=== PATIENT | female | born 1990 ===

== ENCOUNTER 2016-07-22 15:22 | Observation (INO) | payer MEDICAID, OTHER ==
[2016-07-22 15:27] VITALS: BMI 23.6
[2016-07-22 15:33] VITALS: BP 111/74
[2016-07-22] MEDS ORDERED: Sodium Chloride 0.9% 1,000 ML IV ONE (16:17)
[2016-07-22] MEDS ORDERED: Sodium Chloride 0.9% 1,000 ML ONE (16:58)
[2016-07-22 16:59] LABS: BASO % 0.5 % (0.0-2.0); EOS # 0.1 K/uL (0.0-0.7); EOS % 1.6 % (0.0-4.0); HEMATOCRIT 39.9 % (34.0-47.0); LYMPH # 1.2 K/uL (1.0-4.3); LYMPH % 19.5 % (20.0-40.0); MEAN CELL VOLUME 89.8 fL (81.0-99.0); MEAN CORPUSCULAR HEMOGLOBIN 30.2 pg (27.0-31.0); MEAN CORPUSCULAR HGB CONC 33.6 g/dL (33.0-37.0); MONO # 0.6 K/uL (0.0-0.8); MONO % 9.4 % (0.0-10.0); NRBC % 0.1 % (0.0-2.0); RED CELL DISTRIBUTION WIDTH 12.7 % (11.5-14.5)
[2016-07-22 17:04] LABS: CHLORIDE 100 mmol/L (98-107); POTASSIUM 3.6 mmol/L (3.6-5.2); SODIUM 136 mmol/L (132-148)
[2016-07-22 17:06] LABS: ALB/GLOB RATIO 1.4 (1.0-2.1); ALKALINE PHOSPHATASE 54 U/L (38-126); AST/SGOT 49 U/L (14-36); BILIRUBIN,TOTAL 0.5 mg/dL (0.2-1.3); BLOOD UREA NITROGEN 9 mg/dL (7-17); CARBON DIOXIDE 23 mmol/L (22-30); GFR AFRICAN-AMERICAN > 60; TOTAL PROTEIN 7.6 g/dL (6.3-8.3)
[2016-07-22 17:07] LABS: ALT/SGPT 63 U/L (9-52); CALCIUM 8.9 mg/dl (8.6-10.4); GLUCOSE,RANDOM 78 mg/dL (65-105); RBC URINE 4 /hpf (0-3); URINE BACTERIA FEW (<OCC); URINE BILIRUBIN NEGATIVE (NEGATIVE); URINE BLOOD NEGATIVE (NEGATIVE); URINE COLOR Yellow (YELLOW); URINE GLUCOSE (UA) NORMAL (Normal); URINE KETONE 1+ mg/dL (NEGATIVE); URINE LEUKOCYTE ESTERASE TRACE Leu/uL (Negative); URINE PROTEIN NEGATIVE (NEGATIVE); URINE UROBILINOGEN NORMAL mg/dL (0.2-1.0); WBC URINE 12 /hpf (0-5)
--- NOTE | 2016-07-22 17:34 | C.PDOC ---
History Of Present Illness <NaybradyCrystalSravani C - Last Filed: 07/22/16 19:00> <Francine Nowak - Last Filed: 07/22/16 21:44> 26-year-old female, presents to the emergency department with complaints of nausea/vomiting. Patient states she had a questionable period in beginning of , but isn't sure if she is . Patient notes one week duration of nausea/vomiting with difficulty tolerating PO. Pt states she had similar symptoms last year, when she learned that she was , and miscarried. Denies any vaginal bleeding/discharge or symptoms. No other complaints at this time (Sravani Quintero) History Per: Patient History/Exam Limitations: no limitations Onset/Duration Of Symptoms: Days Current Symptoms Are (Timing): Still Present Severity: Moderate <NaybradySravani C - Last Filed: 07/22/16 19:00> <Francine Nowak - Last Filed: 07/22/16 21:44> Time Seen by Provider: 07/22/16 15:51 Chief Complaint (Nursing): Abdominal Pain Past Medical History Reviewed: Historical Data, Nursing Documentation, Vital Signs - Medical History PMH: Denies: Depression Family History: States: Unknown Family Hx - Social History Hx Tobacco Use: Yes (Quit 1 year ago) Hx Alcohol Use: Yes Hx Substance Use: No - Immunization History Hx Tetanus Toxoid Vaccination: No Hx Influenza Vaccination: No Hx Pneumococcal Vaccination: No <DanisrealCrystalSravani C - Last Filed: 07/22/16 19:00> Vital Signs: Last Vital Signs Temp 97.5 F L 07/22/16 15:27 Pulse 92 H 07/22/16 15:27 Resp 17 07/22/16 15:27 BP 111/74 07/22/16 15:27 Pulse Ox 100 07/22/16 19:02 - [facility] Procedures INJECT/INFUSE NEC (11/02/11) Review Of Systems Except As Marked, All Systems Reviewed And Found Negative. Constitutional: Negative for: Fever, Chills Cardiovascular: Negative for: Chest Pain Gastrointestinal: Positive for: Nausea, Vomiting, Constipation Genitourinary: Negative for: Vaginal Discharge, Vaginal Bleeding Musculoskeletal: Negative for: Back Pain Skin: Negative for: Rash Neurological: Negative for: Weakness, Numbness, Headache, Dizziness <Sravani Quintero - Last Filed: 07/22/16 19:00> Physical Exam - Physical Exam Appears: Non-toxic, No Acute Distress Skin: Normal Color, Warm, Dry, No Rash Head: Atraumatic, Normacephalic Eye(s): bilateral: Normal Inspection, PERRL, EOMI Nose: Normal Oral Mucosa: Dry Lips: Normal Appearing Throat: Normal Neck: Normal Cardiovascular: Rhythm Regular Respiratory: Normal Breath Sounds Gastrointestinal/Abdominal: Normal Exam Back: Normal Inspection Extremity: Normal ROM <Sravani Quintero - Last Filed: 07/22/16 19:00> ED Course And Treatment - Laboratory Results Result Diagrams: 07/22/16 16:49 07/22/16 16:49 O2 Sat by Pulse Oximetry: 100 <Sravani Quintero - Last Filed: 07/22/16 19:00> - Laboratory Results Result Diagrams: 07/22/16 16:49 07/22/16 16:49 O2 Sat by Pulse Oximetry: 100 Pulse Ox Interpretation: Normal Reevaluation Time: 21:43 Reassessment Condition: Improved <Francine Nowak - Last Filed: 07/22/16 21:44> ED OBSERVATION Date of observation admission: 07/22/16 Time of observation admission: 17:45 <Sravani Quintero - Last Filed: 07/22/16 19:00> Discharge: Yes <Francine Nowak - Last Filed: 07/22/16 21:44> - Observation admission statement Patient is being placed in observation because:: pelvic pain and questionable (Sravani Quintero) - Goals of Observation Goals of observation are:: Rule out acute abdomen. Initially urine hcg was negative for , but the serum hcg was (+). Will repeat lab work and ordered ultrasound (Sravani Quintero) - Progress Note Progress Note: 07/22/16 18:22 On re-exam, the patient reports that the nausea has improved but there is mild pelvic pain. 07/22/16 18:23 (Sravani Quintero) Disposition - Disposition Disposition Time: 19:01 <Sravani Quintero - Last Filed: 07/22/16 19:00> Counseled Patient/Family Regarding: Studies Performed, Diagnosis, Need For Followup, Rx Given - Disposition Disposition Time: 19:00 <Francine Nowak - Last Filed: 07/22/16 21:44> - Disposition Disposition: HOME/ ROUTINE Condition: FAIR - Clinical Impression Clinical Impression: - Scribe Statement The provider has reviewed the documentation as recorded by the Scribe <Sravani Quintero - Last Filed: 07/22/16 19:00> <Francine Nowak - Last Filed: 07/22/16 21:44> - Scribe Statement Katrhyn Adams All medical record entries made by the Scribe were at my direction and personally dictated by me. I have reviewed the chart and agree that the record accurately reflects my personal performance of the history, physical exam, medical decision making, and the department course for this patient. I have also personally directed, reviewed, and agree with the discharge instructions and disposition. (Sravani Quintero) Physician Patient Turnover Patient Signed Over To: Francine Nowak Handoff Comments: Pending ultrasound and disposition <Sravani Quintero - Last Filed: 07/22/16 19:00>
[2016-07-22 21:46] VITALS: PULSE 76; RESP 18; TEMP 97.6; O2SAT 99
--- NOTE | 2016-07-23 17:15 | US ---
OB ultrasound 07/22/2016 Transabdominal- transvaginal sonographic evaluation of the uterus performed. Findings: Uterus is anteverted measuring approximately 8.3 x 5.2 x 6.1 cm. Cervix is closed measuring 3.3 cm. Intrauterine gestational sac: Gestational sac: MSD 1.93 cm = 6 weeks 3 days Yolk sac: .39cm pole: 0.6 cm = 6 weeks 3 days Average ultrasound age = 6 weeks 3 days +/-0 weeks 3 days Heart motion: 122 BPM small Amount of free fluid present in the cul de sac Right ovary measures 5.1 x 2.5 x 4.7 cm and contains a cyst measuring approximately 2.87 cm in greatest dimension. Right ovary exhibits arterial flow Left ovary measures 3.1 x 2.1 x 3.7 cm and contains at least 2 cysts the largest measuring 1.8 and the 2nd measuring 1.6 cm in greatest dimension. Impression: Single living intrauterine gestation at approximately 6 weeks 3 days +/-0 weeks 3 days Bilateral ovarian cysts.
== END 2016-07-22 21:44 | disposition home or self-care (01) ==
LOC: C.ER 15:22 → C.9OBSV 18:19
PROVIDERS: ADMIT Emergency Medicine; ATTEND Emergency Medicine
DX: R11.2 Nausea with vomiting, unspecified (principal); R10.2 Pelvic and perineal pain; Z33.1 Pregnant state, incidental
CPT/HCPCS: 76805; 76817; 80053; 81001; 83690; 84702; 84703; 85025; 86850; 86900; 96361; 96374; 96375; 99284; G0378; J2405; J2765; J7040

== ENCOUNTER 2017-11-09 16:38 | Emergency (ER) | payer MEDICAID ==
[2017-11-09 16:43] VITALS: BMI 22.3
[2017-11-09 16:45] VITALS: TEMP 97.7
[2017-11-09 17:36] LABS: HCG,QUALITATIVE URINE NEGATIVE (NEGATIVE)
[2017-11-09 17:38] LABS: SQUAMOUS EPITHIAL 1 /hpf (0-5); URINE BILIRUBIN NEGATIVE (NEGATIVE); URINE CLARITY Clear (Clear); URINE COLOR Colorless (YELLOW); URINE GLUCOSE (UA) NORMAL (Normal); URINE LEUKOCYTE ESTERASE NEG Leu/uL (Negative); URINE PROTEIN NEGATIVE (NEGATIVE); URINE UROBILINOGEN NORMAL mg/dL (0.2-1.0)
[2017-11-09 17:50] LABS: URINE BLOOD TRACE (NEGATIVE)
--- NOTE | 2017-11-09 18:00 | C.PDOC ---
History Of Present Illness 27 y/o female presents to ED with complaints of dysuria for 2 days. Contrary to triage patient denies abdominal pain, nausea, vomiting, diarrhea, vaginal bleeding, vaginal discharge, fever, chills or any other complaints at this time. Time Seen by Provider: 11/09/17 17:20 Chief Complaint (Nursing): Abdominal Pain History Per: Patient History/Exam Limitations: no limitations Onset/Duration Of Symptoms: Days Current Symptoms Are (Timing): Still Present Associated Symptoms: Urinary Symptoms Past Medical History Reviewed: Historical Data, Nursing Documentation, Vital Signs Vital Signs: Last Vital Signs Temp 97.7 F 11/09/17 16:43 Pulse 99 H 11/09/17 16:43 Resp 18 11/09/17 16:43 BP 125/85 11/09/17 16:43 Pulse Ox 99 11/09/17 18:00 - Medical History PMH: No Chronic Diseases Surgical History: No Surg Hx - [facility] Procedures INJECT/INFUSE NEC (11/02/11) Family History: States: No Known Family Hx - Social History Hx Tobacco Use: Yes (Quit 1 year ago) Hx Alcohol Use: Yes Hx Substance Use: No - Immunization History Hx Tetanus Toxoid Vaccination: No Hx Influenza Vaccination: No Hx Pneumococcal Vaccination: No Review Of Systems Constitutional: Negative for: Fever, Chills Gastrointestinal: Negative for: Nausea, Vomiting, Abdominal Pain Genitourinary: Positive for: Dysuria Musculoskeletal: Negative for: Back Pain Skin: Negative for: Rash Neurological: Negative for: Weakness, Numbness Physical Exam - Physical Exam Appears: Non-toxic, No Acute Distress Skin: Warm, Dry, No Rash Head: Atraumatic, Normacephalic Eye(s): bilateral: Normal Inspection Oral Mucosa: Moist Neck: Supple Cardiovascular: Rhythm Regular Respiratory: Normal Breath Sounds, No Rales, No Rhonchi, No Wheezing Gastrointestinal/Abdominal: Soft, No Tenderness, No Guarding Back: No CVA Tenderness Extremity: Normal ROM, Capillary Refill (<2 seconds) Neurological/Psych: Oriented x3, Normal Speech, Normal Cognition ED Course And Treatment O2 Sat by Pulse Oximetry: 99 (RA) Pulse Ox Interpretation: Normal Medical Decision Making Medical Decision Making: dysuria - will tx for uti and advise follow up with pmd within 2 days Disposition Counseled Patient/Family Regarding: Studies Performed, Diagnosis - Disposition Referrals: [facility] [Outside] Disposition: HOME/ ROUTINE Disposition Time: 17:58 Condition: STABLE Additional Instructions: follow up with your doctor or medical clinic within 2 days call to make an appointment take medication as needed for pain return to ER if symptoms worsens or progress Prescriptions: Ciprofloxacin HCl [Cipro] 500 mg PO BID #14 tab Phenazopyridine HCl [Pyridium] 200 mg PO BID PRN #6 tablet PRN Reason: Urinary Discomt Instructions: Dysuria, Adult (DC) Forms: General Discharge Instructions, [facility] (Mongolian), Work Excuse - Clinical Impression Clinical Impression: Dysuria - Scribe Statement The provider has reviewed the documentation as recorded by the Deniseibboone Sr All medical record entries made by the Lino were at my direction and personally dictated by me. I have reviewed the chart and agree that the record accurately reflects my personal performance of the history, physical exam, medical decision making, and the department course for this patient. I have also personally directed, reviewed, and agree with the discharge instructions and disposition.
[2017-11-09 19:27] VITALS: BP 124/78; PULSE 88; RESP 20; O2SAT 97
== END 2017-11-09 18:30 | disposition home or self-care (01) ==
LOC: C.ER 16:38
DX: R30.0 Dysuria (principal); Z87.891 Personal history of nicotine dependence

== ENCOUNTER 2018-04-08 16:50 | Emergency (ER) | payer SELFPAY ==
[2018-04-08 16:50] VITALS: BMI 22.3
[2018-04-08 16:55] VITALS: BP 130/83; PULSE 107; RESP 18; TEMP 97.2; O2SAT 100
[2018-04-08 17:48] LABS: SQUAMOUS EPITHIAL 7 /hpf (0-5); URINE BACTERIA RARE (<OCC); URINE BILIRUBIN NEGATIVE (NEGATIVE); URINE BLOOD NEGATIVE (NEGATIVE); URINE CLARITY Hazy (Clear); URINE COLOR Yellow (YELLOW); URINE GLUCOSE (UA) NORMAL (Normal); URINE LEUKOCYTE ESTERASE 3+ Leu/uL (Negative); URINE PROTEIN NEGATIVE (NEGATIVE)
--- NOTE | 2018-04-08 17:52 | C.PDOC ---
History Of Present Illness 28 y/o female c/o vaginal burning and pain with sex in last 1-2 days. discharge yesterday.treated for bv with po metronidazole about 2 weeks ago, did not take diflucan after since she lost rx. pt st[facility] and she hasn't heard anything from them, thus presumes neg. pt reports tx for sti few months ago, partner as well. Time Seen by Provider: 04/08/18 17:15 Chief Complaint (Nursing): Female Genitourinary History Per: Patient History/Exam Limitations: no limitations Onset/Duration Of Symptoms: Days (2) Current Symptoms Are (Timing): Still Present Quality Of Discomfort: Burning Abnormal Vaginal Bleeding: No Past Medical History Reviewed: Historical Data, Nursing Documentation, Vital Signs Vital Signs: Last Vital Signs Temp 97.2 F L 04/08/18 16:53 Pulse 107 H 04/08/18 16:53 Resp 18 04/08/18 16:53 BP 130/83 04/08/18 16:53 Pulse Ox 100 04/08/18 16:53 - Medical History PMH: No Chronic Diseases Denies: Depression Surgical History: No Surg Hx - [facility] Procedures INJECT/INFUSE NEC (11/02/11) Family History: States: No Known Family Hx - Social History Hx Tobacco Use: Yes (Quit 1 year ago) Hx Alcohol Use: Yes Hx Substance Use: No - Immunization History Hx Tetanus Toxoid Vaccination: No Hx Influenza Vaccination: No Hx Pneumococcal Vaccination: No Review Of Systems Constitutional: Negative for: Fever, Chills Gastrointestinal: Negative for: Nausea, Vomiting, Diarrhea Genitourinary: Positive for: Other (vaginal burning and pain ). 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 Patient given follow up instructions. Instructed to return to ER if symptoms worsen or new symptoms arise. Disposition Counseled Patient/Family Regarding: Studies Performed, Diagnosis, Need For Followup, Rx Given - Disposition Disposition: HOME/ ROUTINE Disposition Time: 18:13 Condition: GOOD Additional Instructions: Take medications as prescribed. Follow up with [facility] in the next week. Recommend no sexual activity until seen by hospice fellow. Prescriptions: Miconazole Nitrate [Miconazole 7] 100 mg VG HS #7 supp.vag Nitrofurantoin Macrocrystals [Macrobid] 100 mg PO BID #14 cap Instructions: Urinary Tract Infection, Adult (DC), Vaginal Yeast Infection (DC) Forms: [facility] (Chinese), General Discharge Instructions - Clinical Impression Clinical Impression: UTI (urinary tract infection), Candidiasis of genitalia in female - PA / VETERINARY RECEPTIONIST / Resident Statement MD/DO has reviewed & agrees with the documentation as recorded. - Scribe Statement The provider has reviewed the documentation as recorded by the Scribe Bambi Acharya All medical record entries made by the Lino were at my direction and personally dictated by me. I have reviewed the chart and agree that the record accurately reflects my personal performance of the history, physical exam, medical decision making, and the department course for this patient. I have also personally directed, reviewed, and agree with the discharge instructions and disposition.
== END 2018-04-08 18:45 | disposition home or self-care (01) ==
LOC: C.ER 16:50
DX: B37.3 Candidiasis of vulva and vagina (principal); N39.0 Urinary tract infection, site not specified; Z87.891 Personal history of nicotine dependence